=== PATIENT | male | born 1980 ===

== ENCOUNTER 2017-02-14 06:17 | Day surgery (SDC) | payer OTHER ==
[~2017-02-14] VITALS: Ht 175.3 cm; Wt 95.3 kg
[2017-02-14] VITALS (7 sets, daily range): BP systolic 98–130; BP diastolic 55–73
[~2017-02-14 06:17] MED LIST: ceFAZolin 1gm in D5W 55ml IVP ONE; celeBREX 200mg Cap **SURGERY PATIENTS ONLY ORAL ONE; oxyCONTIN 20mg tab ORAL ONE
[2017-02-14] MEDS ORDERED: Morphine Sulfate PF 10 ML ONE (06:20)
[2017-02-14] MEDS ORDERED: Kenalog-40 1ml Vial ONE (06:20)
[2017-02-14] MEDS ORDERED: Ketorolac 30mg Inj ONE (06:21)
[2017-02-14] MEDS ORDERED: Bupivacaine w/Epi 0.5% 30ml Vial INJ ONE (06:22)
[2017-02-14] MEDS ORDERED: Bupivacaine 0.25% Inj 30ml INJ ONE (06:22)
[2017-02-14] MEDS ORDERED: EPINEPHrine 1mg/1ml Amp ONE (06:22)
[2017-02-14] MEDS ORDERED: Lidocaine 1% 10mg/ml/Epi 0.005mg/ml 30ml vial INJ ONE (06:22)
[2017-02-14] MEDS ORDERED: LR 1000ml ONE (07:00)
[2017-02-14] MEDS ORDERED: NS Irrig 4000ml IRRIG ONE ×2 (07:00→07:10)
[2017-02-14] MEDS ORDERED: Sterile Water Irrig 1000ml IRRIG ONE (07:00)
[2017-02-14] MEDS ORDERED: Propofol 10mg/ml 20ml IV ONE (07:00)
[2017-02-14] MEDS ORDERED: fentaNYL 100 mcg/2 mL IV ONE (07:00)
[2017-02-14] MEDS ORDERED: celeBREX 200mg Cap **SURGERY PATIENTS ONLY ORAL ONE (07:02)
[2017-02-14] MEDS ORDERED: NKM (07:15)
--- NOTE | 2017-02-14 07:42 | Pre-Procedure Note/Attestation ---
Pre-Procedure Note/Attestation Complete Prior to Procedure Planned Procedure: left Procedure Narrative: knee arthroscopy, medial menisectomy, possible synovecomy, possible chondraplasty Indications for Procedure Pre-Operative Diagnosis: left knee internal derangement, possible meniscus tear Attestation I attest that I discussed the nature of the procedure; its benefits; risks and complications; and alternatives (and the risks and benefits of such alternatives ), prior to the procedure, with the patient (or the patient's legal wireless sales representative). I attest that, if there was a reasonable possibility of needing a blood transfusion, the patient (or the patient's legal wireless sales representative) was given the [place] [employer] standardized written summary, pursuant to the Dharmesh Codey Blood Safety Act ([place] Health and Safety Code # 1645, as amended). I attest that I re-evaluated the patient just prior to the surgery and that there has been no change in the patient's H&P, except as documented below: PAM HERNDON Feb 14, 2017 07:42
--- NOTE | 2017-02-14 07:42 | Operative Note - PDOC ---
Operative Note Operative Note Pre-op Diagnosis: left knee internal derangement, possible meniscus tear Procedure: left knee arthroscopy Post-op Diagnosis: same as pre-op plus Operative Findings: consistent w/pre-op dx studies Anesthesia: MAC Specimen: none Complications: none Condition: stable Estimated Blood Loss: none Implant(s) used?: No PAM HERNDON Feb 14, 2017 07:42
--- NOTE | 2017-02-14 07:52 | Immediate Post-Op Evaluation ---
Immediate Post-Op Evalulation Immediate Post-Op Evalulation Procedure: left knee arthroscopy Date of Evaluation: Feb 14, 2017 Time of Evaluation: 07:52 Nausea: No Vomiting: No Patient Status: awake Given Within 1 Hr of Incision: Yes Yesenia Sanders MD Feb 14, 2017 07:52
--- NOTE | 2017-02-14 07:52 | Anethesia Preoperative Eval ---
Anesthesia Pre-op PMH/ROS General Date of Evaluation: Feb 14, 2017 Time of Evaluation: 07:00 Anesthesiologist: sammy ASA Score: ASA 1 Mallampati Score Class I : Soft palate, uvula, fauces, pillars visible Class II: Soft palate, uvula, fauces visible Class III: Soft palate, base of uvula visible Class IV: Only hard plate visible Mallampati Classification: Class I Allergies: Coded Allergies: No Known Allergies (Unverified , 02/13/17) Anesthesia Pre-op Phys. Exam Physician Exam Last Vital Signs Date Time Temp Pulse Resp B/P Pulse Ox O2 Delivery O2 Flow Rate FiO2 02/14/17 07:16 98.1 58 20 130/73 96 Room Air Yesenia Sanders MD Feb 14, 2017 07:52
[2017-02-14] MEDS ORDERED: Norco 5mg/325mg tab ORAL PRN ×2 (08:00→15:30)
[2017-02-14] MEDS ORDERED: Ketorolac 30mg Inj IV PRN (08:00)
[2017-02-14] MEDS ORDERED: fentaNYL 100 mcg/2 mL IV PRN (08:00)
--- NOTE | 2017-02-14 09:34 | 48 Hour Post Anesthesia Eval ---
Post Anesthesia Evaluation Procedure: left knee arthroscopy Date of Evaluation: Feb 14, 2017 Time of Evaluation: 09:34 Nausea: No Vomiting: No Hydration Status: adequate Follow-up care needed: ready to discharge Yesenia Sanders MD Feb 14, 2017 09:34
--- NOTE | 2017-02-14 12:01 | Operative Note - Dictated ---
DATE OF OPERATION: 02/14/2017 PREOPERATIVE DIAGNOSIS: Left knee meniscal tear. POSTOPERATIVE DIAGNOSES: 1. Left knee medial meniscus tear. 2. Left knee hypertrophic synovial tissue. PROCEDURES: 1. Left knee arthroscopic partial medial meniscectomy. 2. Synovectomy of medial, lateral, and patellofemoral compartment. SURGEON: Mango Castillo M.D. ANESTHESIA: MAC. INDICATION FOR PROCEDURE: Patient with progressive left knee pain. He had an MRI which showed possible meniscal tear. Given that he had continued pain and failed conservative treatment left knee arthroscopic possible medial meniscectomy was recommended. Risks, limitations, expectations, and complications of the procedure were discussed in detail. All questions were addressed. DESCRIPTION OF PROCEDURE: An informed consent was obtained. The patient was brought to the operating room and placed under monitored anesthesia control. Tourniquet was applied to the left proximal leg. Left leg was prepped and draped in a sterile manner. Time-out was performed. Ancef was administered. After sterile conditions 20 mL of 0.25% Marcaine plain was injected to the left knee. Postop injection with 1% lidocaine with epinephrine. Esmarch was used to exsanguinate the extremity. Inferolateral stab incision was then made. Trocar was introduced in the knee joint. Hypertrophic synovial tissue in the retropatellar space area, patellofemoral compartments was free of any chondral damage. Medial compartment was entered Tear of the posterior horn of medial meniscus. Partial medial meniscectomy was performed using combination of tristian and biters. After stable meniscal tissue, the intercondylar notch was entered. There is hypertrophic ligamentum mucosa and retropatellar fat pad. This was debrided better to visualize the anterior cruciate ligament, lateral compartment in the knee. Anterior cruciate ligament was probed and noted to be intact. Lateral compartment was entered free of the meniscal chondral damage. At this point, the camera was repositioned in the patellofemoral compartment and synovectomy was completed. At this point, the instruments removed. Portal sites were closed using 3-0 Monocryl sutures. Steri-Strips and a sterile dressing was applied. The patient was awoken and taken to recovery room with stable vital signs. ESTIMATED BLOOD LOSS: None. COMPLICATIONS: None. SPECIMENS: None. IMPLANTS: None. Mango Castillo M.D. DR: EILEEN JOB#: [id number] CC: [email or web address]
[2017-02-14] MEDS ORDERED: HYDROmorphone 1mg/ml Carpuject SUBQ PRN (15:30)
[2017-02-14] MEDS ORDERED: Tylenol #3 tab (300mg/30mg) ORAL PRN (15:30)
[2017-02-14] MEDS ORDERED: D5 1/2NS 1,000 ML IV SCH (15:30)
== END 2017-02-14 09:20 | disposition home or self-care (01) ==
LOC: SUR 06:17
DX: M23.222 Derangement of posterior horn of medial meniscus due to old tear or injury, left knee (principal); M67.262 Synovial hypertrophy, not elsewhere classified, left lower leg; Z87.891 Personal history of nicotine dependence
CPT/HCPCS: 29881; J0171; J0690; J1885; J2274; J2704; J3010; J3301; J3490; J7120; 94003; 94150